=== PATIENT | male | born 1960 | race Hispanic/Latino ===

== ENCOUNTER 2022-07-13 10:17 | Emergency (ER) | payer SELFPAY ==
[2022-07-13] MEDS ORDERED: SOLU-MEDROL 125MG VIAL IM ONE (10:30)
[2022-07-13] MEDS ORDERED: IPRATROPIUM/ALBUTEROL SULFATE 3 ML SOLUTION IH ONE (10:30)
[2022-07-13 10:36] LABS: BASOPHILS % (AUTO) 0.7 % (0.0-5.0); EOSINOPHILS % (AUTO) 7.8 % (0.0-8.0); HEMATOCRIT 48.2 % (42-54); LYMPHOCYTES % (AUTO) 38.6 % (21.0-51.0); MEAN CORPUSCULAR HEMOGLOBIN 30.7 pg (27.0-33.0); MEAN CORPUSCULAR HGB CONC 33.2 g/dL (32.0-36.0); MEAN CORPUSCULAR VOLUME 92.3 fL (79-99); MONOCYTES % (AUTO) 7.8 % (3.0-13.0); NEUTROPHILS % (AUTO) 44.7 % (40.0-77.0); PLATELET COUNT (AUTO) 295 K/uL (130-400); RED BLOOD CELL COUNT(AUTO) 5.22 MIL/uL (4.50-6.20); RED CELL DISTRIBUTION WIDTH 13.4 % (11.0-15.5); WHITE BLOOD COUNT (AUTO) 12.2 K/uL (4.8-10.8)
[2022-07-13 10:43] LABS: CREATININE 0.9 mg/dL (0.5-1.5); POTASSIUM 3.9 mmol/L (3.5-5.1)
[2022-07-13 10:47] LABS: ALBUMIN 3.9 g/dL (3.5-5.0); TOTAL PROTEIN, SERUM 8.2 g/dL (6.0-8.3)
[2022-07-13 11:21] LABS: ABG BASE EXCESS -1.3 mmol/L (-2.0-3.0); ABG HCO3 23.9 mmol/L (21.0-28.0); ABG OXYGEN SATURATION 97.6 % (95.0-99.0); ABG PCO2 42 mmHg (35-48)
[2022-07-13 12:10] LABS: B-TYPE NATRIURETIC PEPTIDE 11 pg/mL (0-100)
[2022-07-13 12:22] VITALS: BP 119/76
[2022-07-13] MEDS ORDERED: ALBU6.7H14 IH (12:25)
[2022-07-13] MEDS ORDERED: PRED5TAB44 PO (12:25)
[2022-07-13] MEDS ORDERED: LORA10TA7 PO (12:25)
[2022-07-13] MEDS ORDERED: NIRM1TAB5 PO (12:26)
== END 2022-07-13 12:39 | disposition home or self-care (01) ==
LOC: EDH 10:17
DX: U07.1 COVID-19 (principal); J45.901 Unspecified asthma with (acute) exacerbation; I10 Essential (primary) hypertension; Z86.73 Personal history of transient ischemic attack (TIA), and cerebral infarction without residual deficits
CPT/HCPCS: 99285; 71045; 87635; 84484; 80053; 82803; 83880; 85025; 87040 ×2; 87804 ×2; 83605; 36415; 96372; 93005; 36600; 94640; 94660; C9803; J2930